=== PATIENT | female | born 1980 | race Hispanic/Latino ===

== ENCOUNTER 2017-07-28 21:04 | Emergency (ER) | payer OTHER ==
[2017-07-28] MEDS ORDERED: SODIUM CHLORIDE 0.9% 1000ML 1,000 ML IV ONE ×2 (21:30→22:33)
[2017-07-28] MEDS ORDERED: ONDANSETRON HCL 4 MG/2 ML VIAL ONE (21:30)
[2017-07-28 21:39] LABS: BASOPHILS % (AUTO) 0.3 % (0.0-5.0); EOSINOPHILS % (AUTO) 0.7 % (0.0-8.0); HEMATOCRIT 35.6 % (36-48); LYMPHOCYTES % (AUTO) 12.5 % (21.0-51.0); MEAN CORPUSCULAR HEMOGLOBIN 30.5 pg (27.0-33.0); MEAN CORPUSCULAR HGB CONC 34.2 g/dL (32.0-36.0); MEAN CORPUSCULAR VOLUME 89.3 fL (79-99); MONOCYTES % (AUTO) 6.8 % (3.0-13.0); NEUTROPHILS % (AUTO) 79.7 % (40.0-77.0); PLATELET COUNT (AUTO) 289 K/uL (130-400); RED BLOOD CELL COUNT(AUTO) 3.98 MIL/uL (4.00-5.50); WHITE BLOOD COUNT (AUTO) 7.3 K/uL (4.8-10.8)
[2017-07-28 21:40] LABS: APPEARANCE,URINE Cloudy (CLEAR); BILIRUBIN,URINE Negative (NEGATIVE); COLOR,URINE Yellow (YELLOW); GLUCOSE, URINE (UA) Negative (NEGATIVE); KETONES,URINE Negative (NEGATIVE); LEUKOCYTE ESTERASE ,URINE Small (NEGATIVE); NITRATE,URINE Negative (NEGATIVE); OCCULT BLOOD,URINE Negative (NEGATIVE); PH,URINE 7.5 (5.0-8.0); PROTEIN,URINE Negative (NEGATIVE)
[2017-07-28 21:49] LABS: CREATININE 0.6 mg/dL (0.5-1.5); POTASSIUM 3.7 mmol/L (3.5-5.1)
[2017-07-28 21:49] LABS: BACTERIA,URINE Rare /HPF (None Seen); RBC,URINE None Seen /HPF (0-1); SQUAMOUS EPITHELIAL CELL,UR 0-2 /LPF (0-2); WBC,URINE 0-1 /HPF (0-1)
[2017-07-28 21:53] LABS: BILIRUBIN,TOTAL 0.3 mg/dL (0.2-1.0); TOTAL PROTEIN, SERUM 6.8 g/dL (6.0-8.3)
== END 2017-07-28 23:57 | disposition home or self-care (01) ==
LOC: EDH 21:04
DX: A08.4 Viral intestinal infection, unspecified (principal); Z3A.18 18 weeks gestation of pregnancy
CPT/HCPCS: 36415; 76805; 80053; 81001; 85025; 96361; 96374; 99285; J2405; J7030 ×2

== ENCOUNTER 2017-10-29 14:22 | Observation (INO) | payer OTHER ==
[~2017-10-29] VITALS: Ht 165.1 cm; Wt 88.0 kg
[2017-10-29 15:58] LABS: APPEARANCE,URINE Cloudy (CLEAR); BILIRUBIN,URINE Negative (NEGATIVE); COLOR,URINE Dark Yellow (YELLOW); GLUCOSE, URINE (UA) Negative (NEGATIVE); KETONES,URINE Trace mg/dL (NEGATIVE); LEUKOCYTE ESTERASE ,URINE Large (NEGATIVE); NITRATE,URINE Negative (NEGATIVE); OCCULT BLOOD,URINE Negative (NEGATIVE); PH,URINE 6.5 (5.0-8.0); PROTEIN,URINE Trace (NEGATIVE)
[2017-10-29] MEDS: LACTATED RINGERS 1000ML 1,000 ML IV SCH ×3 (16:00→18:12)
[2017-10-29 16:23] LABS: BACTERIA,URINE Many /HPF (None Seen); MUCUS,URINE Few LPF (None Seen); RBC,URINE None Seen /HPF (0-1)
[2017-10-29] MEDS ORDERED: AMPICILLIN 2GM+NS 100ML 100 ML IV ONE (17:30)
[2017-10-29] MEDS ORDERED: LACTATED RINGERS 1000ML 1,000 ML IV PRN (17:58)
[2017-10-29] MEDS ORDERED: MAGNESIUM SULFATE 1,000 ML IV PRN (17:58)
[2017-10-29] MEDS ORDERED: CALCIUM GLUCONATE 1 GM/10 ML VIAL IV PRN (18:00)
[2017-10-29] MEDS ORDERED: MAGNESIUM 4GM PREMIX 100ML 100 ML IV ONE (18:04)
[2017-10-29] MEDS ORDERED: MAGNESIUM SULFATE 1,000 ML IV ONE (18:05)
[2017-10-29] MEDS ORDERED: MAGNESIUM 4GM PREMIX 100ML 100 ML IV SCH (18:15)
[2017-10-29 18:21] LABS: HEMATOCRIT 32.8 % (36-48); MEAN CORPUSCULAR HGB CONC 35.3 g/dL (32.0-36.0); MEAN CORPUSCULAR VOLUME 90.7 fL (79-99); PLATELET COUNT (AUTO) 301 K/uL (130-400); RED BLOOD CELL COUNT(AUTO) 3.61 MIL/uL (4.00-5.50); RED CELL DISTRIBUTION WIDTH 13.7 % (11.0-15.5)
[2017-10-29 20:00] LABS: AMPHET/METH SCREEN,URINE NEGATIVE (NEGATIVE); BARBITURATE SCREEN, URINE NEGATIVE (NEGATIVE); BENZODIAZEPINES SCREEN,URINE NEGATIVE (NEGATIVE); CANNABINOID SCREEN,URINE NEGATIVE (NEGATIVE); COCAINE SCREEN,URINE NEGATIVE (NEGATIVE); OPIATE SCREEN,URINE NEGATIVE (NEGATIVE); PHENCYCLIDINE SCREEN,URINE NEGATIVE (NEGATIVE)
[2017-10-29] MEDS ORDERED: ACETAMINOPHEN 325 MG TAB PO PRN (22:15)
[2017-10-29] MEDS: AMPICILLIN 2GM+NS 100ML 100 ML IV SCH (23:40)
[2017-10-30] MEDS: AMPICILLIN 2GM+NS 100ML 100 ML IV SCH ×2 (05:59→11:55)
[2017-10-31 08:10] LABS: HEPATITIS Bs ANTIGEN SCREEN P Negative (Negative)
== END 2017-10-30 14:00 | disposition home or self-care (01) ==
LOC: EDH 14:22 → INTOOBSV 14:23 → LDH 14:23 → OBSVTOIN 14:23
PROVIDERS: ADMIT Specialist; ATTEND Specialist
DX: O26.893 Other specified pregnancy related conditions, third trimester (principal); R10.9 Unspecified abdominal pain; O09.523 Supervision of elderly multigravida, third trimester; O62.9 Abnormality of forces of labor, unspecified; Z3A.32 32 weeks gestation of pregnancy
CPT/HCPCS: 36415; 76805; 80305; 81001; 85027; 86592; 86850; 86900; 86901; 87340; 96361; 96365; 96375; 96376 ×2; 99285; A4344; G0378 ×24; J0290 ×4; J3475 ×2; 96360

== ENCOUNTER 2017-11-21 08:56 | Observation (INO) | payer OTHER ==
[2017-11-21 09:32] LABS: HEMATOCRIT 35.5 % (36-48); MEAN CORPUSCULAR HEMOGLOBIN 31.6 pg (27.0-33.0); MEAN CORPUSCULAR HGB CONC 34.6 g/dL (32.0-36.0); MEAN CORPUSCULAR VOLUME 91.1 fL (79-99); NUCLEATED RED BLOOD CELLS 0.1 % (0.0-0.19); PLATELET COUNT (AUTO) 261 K/uL (130-400); RED BLOOD CELL COUNT(AUTO) 3.89 MIL/uL (4.00-5.50); RED CELL DISTRIBUTION WIDTH 13.7 % (11.0-15.5); WHITE BLOOD COUNT (AUTO) 11.2 K/uL (4.8-10.8)
[2017-11-21 09:36] LABS: APPEARANCE,URINE Cloudy (CLEAR); BILIRUBIN,URINE Negative (NEGATIVE); COLOR,URINE Dark Yellow (YELLOW); GLUCOSE, URINE (UA) Negative (NEGATIVE); KETONES,URINE 40 mg/dL (NEGATIVE); LEUKOCYTE ESTERASE ,URINE Moderate (NEGATIVE); NITRATE,URINE Negative (NEGATIVE); OCCULT BLOOD,URINE Nonhemolyzed Trace (NEGATIVE); PH,URINE 5.5 (5.0-8.0); PROTEIN,URINE Trace (NEGATIVE)
[2017-11-21 09:44] LABS: BACTERIA,URINE Few /HPF (None Seen); MUCUS,URINE Few LPF (None Seen); RBC,URINE 0-1 /HPF (0-1); SQUAMOUS EPITHELIAL CELL,UR Few /HPF (0-2)
[2017-11-21] MEDS ORDERED: BISMUTH SUBSALICYLATE 262 MG/15 ML ML PO PRN (10:30)
[2017-11-21] MEDS: AMPICILLIN 2GM+NS 100ML 100 ML IV SCH ×3 (10:46→22:27)
[2017-11-21] MEDS: ACETAMINOPHEN 325 MG TAB PO PRN ×3 (10:48→22:24)
[2017-11-21] MEDS: LACTATED RINGERS 1000ML 1,000 ML IV SCH (22:27)
[2017-11-22] MEDS: AMPICILLIN 2GM+NS 100ML 100 ML IV SCH (03:39)
[2017-11-22] MEDS: ACETAMINOPHEN 325 MG TAB PO PRN ×2 (03:40→11:01)
[2017-11-22] MEDS: LACTATED RINGERS 1000ML 1,000 ML IV SCH ×2 (03:45→21:01)
[2017-11-22] MEDS ORDERED: TERBUTALINE SULFATE VIAL 1MG/ML SQ PRN (08:45)
[2017-11-22 10:13] LABS: BASOPHILS % (AUTO) 0.4 % (0.0-5.0); HEMATOCRIT 33.3 % (36-48); MEAN CORPUSCULAR VOLUME 91.2 fL (79-99); MONOCYTES % (AUTO) 5.1 % (3.0-13.0); NEUTROPHILS % (AUTO) 81.5 % (40.0-77.0); PLATELET COUNT (AUTO) 235 K/uL (130-400); RED BLOOD CELL COUNT(AUTO) 3.65 MIL/uL (4.00-5.50); WHITE BLOOD COUNT (AUTO) 7.4 K/uL (4.8-10.8)
[2017-11-22] MEDS ORDERED: LOPERAMIDE HCL 2 MG CAP PO PRN (18:15)
[2017-11-22] MEDS: SULFAMETHOX-TMP DS 800/160 TAB PO SCH (21:01)
[2017-11-23] MEDS: ACETAMINOPHEN 325 MG TAB PO PRN (01:28)
[2017-11-23 08:20] LABS: HEPATITIS Bs ANTIGEN SCREEN P Negative (Negative)
[2017-11-23] MEDS: SULFAMETHOX-TMP DS 800/160 TAB PO SCH (09:01)
[2017-11-23] MEDS ORDERED: FLUCONAZOLE 100 MG TAB PO SCH (09:30)
== END 2017-11-23 10:10 | disposition home or self-care (01) ==
LOC: EDH 08:56 → LDH 08:57
PROVIDERS: ADMIT Specialist; ATTEND Specialist
DX: O26.893 Other specified pregnancy related conditions, third trimester (principal); R19.7 Diarrhea, unspecified; R50.9 Fever, unspecified; O62.9 Abnormality of forces of labor, unspecified; O09.523 Supervision of elderly multigravida, third trimester; Z3A.35 35 weeks gestation of pregnancy; Z87.440 Personal history of urinary (tract) infections; Z79.899 Other long term (current) drug therapy
CPT/HCPCS: 36415 ×2; 76805; 81001; 85025; 85027; 86592; 86850; 86900; 86901; 87046; 87088; 87340; 96361 ×2; 96365; 96372; 96375; 96376 ×2; 99285; G0378 ×49; J0290 ×4; J3105; J7120 ×4; 96360